=== PATIENT | female | born 1950 | race Caucasian/White ===

== ENCOUNTER → 2017-05-21 | Outpatient (CLI) | payer OTHER, MEDICARE | LOC: BMCIMAGING 11:58 | PROVIDERS: ATTEND Family Medicine | DX: Z12.31 Encounter for screening mammogram for malignant neoplasm of breast (principal) | CPT/HCPCS: G0202 ==

== ENCOUNTER 2017-10-16 15:50 | Emergency (ER) | payer OTHER, MEDICARE ==
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
[2017-10-16 17:09] VITALS: BP 155/72
== END 2017-10-16 16:50 | disposition home or self-care (01) ==
DX: S09.90XA Unspecified injury of head, initial encounter (principal); W01.198A Fall on same level from slipping, tripping and stumbling with subsequent striking against other object, initial encounter

== ENCOUNTER → 2018-06-16 | Outpatient (CLI) | payer OTHER, MEDICARE | LOC: BMCIMAGING 14:31 | PROVIDERS: ATTEND Family Medicine | DX: Z12.31 Encounter for screening mammogram for malignant neoplasm of breast (principal); M81.0 Age-related osteoporosis without current pathological fracture ==

== ENCOUNTER → 2018-12-18 | Outpatient (CLI) | payer OTHER, MEDICARE | LOC: BMCIMAGING 09:14 ==

== ENCOUNTER → 2018-12-24 | Outpatient (CLI) | payer OTHER, MEDICARE | LOC: FIMAGING 17:38 ==